=== PATIENT | female | born 1990 | race Caucasian/White ===

== ENCOUNTER 2019-04-14 13:10 | Day surgery (SDC) | payer BC ==
[2019-04-14] MEDS ORDERED: LACTATED RINGER'S 1,000 ML IV (14:30)
[2019-04-14] MEDS: CEFAZOLIN 2 GM/50 ML (PMX) 50 ML IVPB (15:00)
[2019-04-14] MEDS ORDERED: GLYCOPYRROLATE 0.4 MG INJ (15:08)
[2019-04-14] MEDS ORDERED: KETOROLAC 30 MG INJ (15:08)
[2019-04-14] MEDS ORDERED: NEOSTIGMINE 3 MG/3 ML SYRINGE (15:08)
[2019-04-14] MEDS ORDERED: ROCURONIUM 50 MG INJ (15:08)
[2019-04-14] MEDS ORDERED: PROPOFOL 20 ML (15:08)
[2019-04-14] MEDS ORDERED: CEFAZOLIN 1 GM INJ (15:08)
[2019-04-14] MEDS ORDERED: BUPIVACAINE 0.25%/EPI (SDV) 10 ML INJ (15:09)
[2019-04-14] MEDS ORDERED: LIDOCAINE 1% (MPF) 30 ML INJ (15:09)
[2019-04-14] MEDS ORDERED: ROPIVACAINE 0.5 % 30 ML VIAL (15:10)
[2019-04-14] MEDS ORDERED: ONDANSETRON 4 MG INJ (15:10)
[2019-04-14] MEDS ORDERED: DEXAMETHASONE 4 MG/ML 5 ML INJ (15:10)
[2019-04-14] MEDS ORDERED: FENTAnyl 50 MCG/ML VIAL ×2 (15:10→15:54)
[2019-04-14] MEDS ORDERED: MIDAZOLAM 1 MG/ML 2 ML INJ (15:10)
[2019-04-14] MEDS ORDERED: DIPHENHYDRAMINE 50 MG INJ IV (15:30)
[2019-04-14] MEDS ORDERED: MEPERIDINE 25 MG INJ IV (15:30)
[2019-04-14] MEDS ORDERED: EPHEDrine 25 MG/5 ML SYG IV (15:30)
[2019-04-14] MEDS ORDERED: TRIMETHOBENZAMIDE 100 MG/ML VIAL IM (15:30)
[2019-04-14] MEDS ORDERED: hydrALAzine 20 MG INJ IV (15:30)
[2019-04-14] MEDS ORDERED: OXYCODONE/ACETAMINOPHEN (5/325) TAB PO ×2 (15:30)
[2019-04-14] MEDS ORDERED: ALBUTEROL 0.083% (NEB) 2.5 MG/3 ML AMP HHN (15:30)
[2019-04-14] MEDS ORDERED: HYDROmorphONE 1 MG/5 ML IV SYRINGE IV ×3 (15:30)
[2019-04-14] MEDS ORDERED: IPRATROPIUM (NEB) 0.5 MG/2.5 ML AMP HHN (15:30)
[2019-04-14] MEDS ORDERED: FENTAnyl 50 MCG/ML VIAL IV ×2 (15:30)
[2019-04-14] MEDS ORDERED: LABETALOL HCL 20MG INJ IV (15:30)
[2019-04-14] MEDS: MIDAZOLAM 1 MG/ML 2 ML INJ IV (16:50)
[2019-04-14] MEDS: FENTAnyl 50 MCG/ML VIAL IV (16:51)
[2019-04-14] MEDS: ONDANSETRON 4 MG INJ IV (16:59)
[2019-04-14] MEDS ORDERED: HYDROCODONE/APAP (5/325) TAB PO ×2 (17:00)
[2019-04-14] MEDS ORDERED: morphine 10 MG INJ IM (17:00)
[2019-04-14] MEDS ORDERED: ONDANSETRON 4 MG INJ IV (17:00)
[2019-04-14] MEDS ORDERED: IBUPROFEN 600 MG TAB PO (17:00)
== END 2019-04-14 18:37 | disposition home or self-care (01) ==
LOC: SDS 13:10
DX: K80.10 Calculus of gallbladder with chronic cholecystitis without obstruction (principal); K76.0 Fatty (change of) liver, not elsewhere classified
CPT/HCPCS: 47379; 88304; 88307; 88313